=== PATIENT | male | born 1965 | race Caucasian/White ===

== ENCOUNTER 2017-11-26 19:10 | Inpatient (IN) | payer OTHER ==
[~2017-11-26] VITALS: Ht 180.3 cm; Wt 133.8 kg
--- NOTE | ~2017-11-26 | HC ---
[facility] [place] [address] CONSULTATION Name: POPEYE CASTRO Room #: 364-P [facility] IN ..#: [id number] Admission: 11/26/17 Attend Phys: Damon Mosqueda MD Discharge: 11/28/17 Date of : 63 Report #: [id number] THIS REPORT FOR: //name// CC: Damon Mosqueda Physician staff Chelsie Weissdaron DATE OF SERVICE: 11/27/2017 HISTORY OF PRESENT ILLNESS: This is a 52-year-old male patient who was evaluated by me, one neurological etiology for the patient's seizure. He indicated that he had only one seizure. I reviewed the records and from the records it indicate that he may have had even 2 seizures, but they were associated with hypoglycemia. He is on insulin. He was having some infection on the left hand. He also was not very hungry and was not eating very good. He does not remember much about the seizure, but it was moderately severe seizure where he had jerking and looks like a postictal period. REVIEW OF SYSTEMS: Indicate that he does have a history of diabetes. He also had back pain and in fact he is on disability because of back pain. He had a staph infection on the left hand. He had a history of hypertension. That was his relevant 14-point review of systems, which I carried out with him. He denies any CO or any strokes in the past. PAST MEDICAL HISTORY: Positive for diabetes. FAMILY HISTORY: Negative for early age stroke. SOCIAL HISTORY: He indicates that he is disabled because of his back. He does not smoke. PHYSICAL EXAMINATION: His examination indicate that he is alert, responsive. His speech, concentration, fund of knowledge and memory is at his baseline. Cranial nerve examination 2-12 looks unremarkable. Strength, sensation, reflexes and tone as best as can be checked looks unremarkable, but left hand was not possible to examine. Reflexes are diminished. He does not have any cerebellar sign. I could not have a very good look at the patient's fundus. He is a well-built individual who is overweight. His hearing and vision looks adequate. He has no facial dysmorphic features. His pulses are palpable, but he says he has some vascular insufficiency. He does not have any edema. His cardiac examination is unremarkable. No respiratory difficulty or rhonchi. Blood pressure is 146/96, respirations 16, pulse is 89, temperature is 97.6. LABORATORY DATA: His white count is 8.8. His last blood sugar was 267. He did not have any imaging [place] [address] CONSULTATION Name: POPEYE CASTRO Room #: 364-P [facility] IN M.R.#: [id number] Admission: 11/26/17 Attend Phys: Damon Mosqueda MD Discharge: 11/28/17 Date of : 63 Report #: [id number] IMPRESSION: His seizures were most likely secondary to hypoglycemia. I do not believe there is any neurological etiology for it, but he is predisposed to it because of his size and I will go ahead and do some basic workup on him. If that is negative, then it will be even more likely that the patient's symptoms are because of hypoglycemia, which appeared to be. The evaluation and management of hypoglycemia and the restrictions he needs to be on I will defer to you. If any of the workup shows any neurological pathology, then we will come back and look at it and give further recommendation as necessary. RECOMMENDATIONS: 1. I will get some basic neurological workup. 2. If that is negative, I do not think anything further neurological need to be done. 3. 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 Thank you very much for this referral and if you have any question, please feel free to contact me. We will follow as necessary, especially if any of the workup come up to be positive, we will follow, otherwise we will not follow this patient's endocrine. <ELECTRONICALLY SIGNED> By: Domenic Hamilton MD 11/29/172019 2 53 Domenic Hamilton MD /nt
--- NOTE | ~2017-11-26 | EEG ---
[facility] [address] ELECTROENCEPHALOGRAM Name: POPEEY CASTRO Alexi Room #: 364-P [facility] IN M.R.#: [id number] Admission: 11/26/17 Attend Phys: Damon Mosqueda MD Discharge: 11/28/17 Date of : 63 Report #: [id number] THIS REPORT FOR: //name// CC: Damon Mosqueda Physician staff Chelsie Lundy DATE OF SERVICE: 11/27/2017 This patient is being evaluated for seizure. EEG was done by placing the electrode by standard 10-20 system of electrode placement. Both referential and sequential montages were used for recording. Background activity in this patient's EEG is about 10 Hz and 30 microvolt. This patient goes to sleep that is associated with bilaterally symmetrical sleep spindle and vertex sharp waves. Photic stimulation is unremarkable. Throughout the record, no active epileptiform activity was noticed. IMPRESSION: This patient's electroencephalogram is within normal limit. Thank you very much for this referral. <ELECTRONICALLY SIGNED> By: Domenic Hamilton MD 11/29/172021 26 31 Domenic Hamilton MD /nt
[2017-11-26 19:13] VITALS: BP 160/74
[2017-11-26 19:30] LABS: ABSOLUTE NEUTROPHILS 9.5 thou/uL (1.4-8.2); BASOPHILS 0.7 % (0.0-2.0); EOSINOPHILS 0.3 % (0.0-3.0); HEMATOCRIT 45.1 % (42.0-52.0); HEMOGLOBIN 15.1 gm/dL (14.0-18.0); LYMPHOCYTES 13.2 % (24.0-44.0); MCH 28.7 pg (26.0-34.0); MCHC 33.6 g/dL (28.0-37.0); MCV 85.2 fL (80.0-100.0); MONOCYTES 8.8 % (1.0-8.0); PLATELET COUNT 489 thou/uL (150-400); RBC 5.29 mil/uL (4.50-6.00); RDW 14.3 % (10.5-14.5); WBC 12.3 thou/uL (4.0-11.0)
[2017-11-26 19:31] LABS: CALCIUM 9.9 mg/dL (8.5-10.1); CREATININE 1.1 mg/dL (0.7-1.3); POTASSIUM 3.6 mmol/L (3.5-5.1)
[2017-11-26 19:38] LABS: ALBUMIN 3.7 g/dL (3.4-5.0); TOTAL BILIRUBIN 0.6 mg/dL (<0.1-1.0); TOTAL PROTEIN 7.5 g/dL (6.4-8.2)
[2017-11-26 19:40] VITALS: BP 152/93
[2017-11-26] MEDS ORDERED: HUMALOG JU100 UNIT/1 (19:43)
[2017-11-26] MEDS ORDERED: ASPIR 8181 MG PO (19:43)
[2017-11-26] MEDS ORDERED: METFORMIN HCL500 MG PO (19:44)
[2017-11-26] MEDS ORDERED: KLOR-CON 1010 MEQ PO (19:44)
[2017-11-26] MEDS ORDERED: BENICAR20 MG PO (19:44)
[2017-11-26] MEDS ORDERED: VITAMIN D2400 UNIT PO (19:45)
[2017-11-26] MEDS ORDERED: ESZOPICLONE1 MG PO (19:46)
[2017-11-26] MEDS ORDERED: CARVEDILOL12.5 MG PO (19:48)
[2017-11-26] MEDS ORDERED: FENOFIBRATE160 MG PO (19:50)
[2017-11-26] MEDS ORDERED: LIVALO1 MG PO (19:50)
[2017-11-26] MEDS ORDERED: OXYBUTYNIN 5 MG5 M2 PO (19:51)
[2017-11-26] MEDS ORDERED: PROSCAR 5MG TABL5 MG PO (19:51)
[2017-11-26 20:18] LABS: BE(vivo) -4.3 mmol/L (-2 to +3); HCO3 20.4 mmol/L (22.0-26.0); PCO2 36.6 mmHg (35.0-45.0); PO2 93.2 mmHg (80.0-100.0); pH 7.364 (7.360-7.450); sO2 96.9 % (92.0-98.0)
[2017-11-26 21:18] VITALS: BP 147/65
[2017-11-26 23:50] VITALS: BP 109/57
[2017-11-27] MEDS ORDERED: DOXYCYCLINE 10100 MG PO (01:34)
[2017-11-27] MEDS ORDERED: HYDROCODONE-AP1 EAC6 PO (01:35)
[2017-11-27 03:51] VITALS: BP 137/84
[2017-11-27 06:03] LABS: HEMATOCRIT 42.2 % (42.0-52.0); HEMOGLOBIN 14.2 gm/dL (14.0-18.0); MCH 28.4 pg (26.0-34.0); MCHC 33.6 g/dL (28.0-37.0); MCV 84.4 fL (80.0-100.0); RDW 14.2 % (10.5-14.5); WBC 8.8 thou/uL (4.0-11.0)
[2017-11-27 06:12] LABS: CALCIUM 9.2 mg/dL (8.5-10.1); CREATININE 0.9 mg/dL (0.7-1.3); POTASSIUM 4.2 mmol/L (3.5-5.1)
[2017-11-27 07:39] VITALS: BP 146/96
[2017-11-27 12:04] VITALS: BP 167/98
[2017-11-27 15:07] VITALS: BP 146/83
[2017-11-27 20:10] VITALS: BP 138/68
[2017-11-28 05:00] VITALS: BP 130/71
[2017-11-28 07:39] VITALS: BP 144/85
[2017-11-28] MEDS ORDERED: LANTUS100 UNIT/M SUBQ (09:24)
[2017-11-28] MEDS ORDERED: NOVOLOG100 UNIT/1 SUBQ (09:24)
[2017-11-28 10:25] VITALS: BP 144/85
[2017-11-28 10:27] VITALS: BP 144/85
== END 2017-11-28 10:54 | disposition home or self-care (01) | DRG 639 ==
LOC: ER 19:10 → EROBS 20:29 → 3W 21:33
PROVIDERS: Nurse Practitioner Family; Physician Assistant
PROC: 4A00X4Z Measurement of Central Nervous Electrical Activity, External Approach (ICD-10-PCS; principal; 2017-11-27)
DX: E11.649 Type 2 diabetes mellitus with hypoglycemia without coma (principal); I10 Essential (primary) hypertension; R56.9 Unspecified convulsions; W18.39XA Other fall on same level, initial encounter; E78.5 Hyperlipidemia, unspecified; L03.012 Cellulitis of left finger; Y93.89 Activity, other specified; Y92.89 Other specified places as the place of occurrence of the external cause; Y99.8 Other external cause status; Z79.4 Long term (current) use of insulin; Z79.82 Long term (current) use of aspirin; Z79.899 Other long term (current) drug therapy; Z88.0 Allergy status to penicillin; Z91.041 Radiographic dye allergy status; Z91.14 Patient's other noncompliance with medication regimen
CPT/HCPCS: 10879

== ENCOUNTER 2017-12-31 14:45 | Emergency (ER) | payer OTHER ==
[~2017-12-31] VITALS: Ht 180.3 cm; Wt 134.7 kg
[~2017-12-31 14:45] MED LIST: ASPIR 8181 MG PO; BENICAR20 MG PO; CARVEDILOL12.5 MG PO; DOXYCYCLINE 10100 MG PO; ESZOPICLONE1 MG PO; FENOFIBRATE160 MG PO; HUMALOG JU100 UNIT/1; HYDROCODONE-AP1 EAC6 PO; KLOR-CON 1010 MEQ PO; LANTUS100 UNIT/M SUBQ; LIVALO1 MG PO; METFORMIN HCL500 MG PO; NOVOLOG100 UNIT/1 SUBQ; OXYBUTYNIN 5 MG5 M2 PO; PROSCAR 5MG TABL5 MG PO; VITAMIN D2400 UNIT PO
[2017-12-31] MEDS ORDERED: ALPRAZOLAM2 MG PO (15:51)
[2017-12-31] MEDS ORDERED: TRULICITY1.5 MG/0.5 (15:58)
[2017-12-31 16:22] LABS: ABSOLUTE NEUTROPHILS 8.9 thou/uL (1.4-8.2); BASOPHILS 0.5 % (0.0-2.0); EOSINOPHILS 0.6 % (0.0-3.0); HEMATOCRIT 41.5 % (42.0-52.0); HEMOGLOBIN 14.2 gm/dL (14.0-18.0); LYMPHOCYTES 16.9 % (24.0-44.0); MCH 28.9 pg (26.0-34.0); MCHC 34.3 g/dL (28.0-37.0); MCV 84.2 fL (80.0-100.0); MONOCYTES 9.9 % (1.0-8.0); PLATELET COUNT 393 thou/uL (150-400); POLYS 72.1 % (36.0-66.0); RBC 4.93 mil/uL (4.50-6.00); RDW 14.6 % (10.5-14.5); WBC 12.3 thou/uL (4.0-11.0)
[2017-12-31 16:36] LABS: CALCIUM 9.4 mg/dL (8.5-10.1); CREATININE 1.3 mg/dL (0.7-1.3); POTASSIUM 4.9 mmol/L (3.5-5.1)
[2017-12-31 16:41] LABS: ALBUMIN 3.6 g/dL (3.4-5.0); TOTAL BILIRUBIN 0.3 mg/dL (<0.1-1.0); TOTAL PROTEIN 7.3 g/dL (6.4-8.2)
== END 2017-12-31 17:14 | disposition home or self-care (01) ==
LOC: ER 14:45
PROVIDERS: Emergency Medicine
DX: E11.649 Type 2 diabetes mellitus with hypoglycemia without coma (principal); I10 Essential (primary) hypertension; E78.5 Hyperlipidemia, unspecified; Z79.4 Long term (current) use of insulin; Z88.0 Allergy status to penicillin; Z91.041 Radiographic dye allergy status